=== PATIENT | female | born 1980 | race Caucasian/White ===

== ENCOUNTER 2017-01-03 14:40 | Emergency (ER) | payer MEDICAID ==
[~2017-01-03] VITALS: Ht 167.6 cm; Wt 119.9 kg
[2017-01-03 15:03] VITALS: BP 132/80
[2017-01-03] MEDS ORDERED: KETOROLAC 30 MG/1 ML IM ONE (15:30)
[2017-01-03] MEDS ORDERED: METHOCARBAMOL 750 MG TABLET PO ONE (15:30)
[2017-01-03] MEDS ORDERED: METHOCARBAMOL 750 MG TABLET ONE (15:34)
[2017-01-03] MEDS ORDERED: KETOROLAC 30 MG/1 ML ONE (15:34)
== END 2017-01-03 16:32 | disposition home or self-care (01) ==
LOC: ED 15:52
DX: S39.012A Strain of muscle, fascia and tendon of lower back, initial encounter (principal); Z88.0 Allergy status to penicillin; X58.XXXA Exposure to other specified factors, initial encounter; Y93.89 Activity, other specified; Y92.89 Other specified places as the place of occurrence of the external cause; Y99.8 Other external cause status
CPT/HCPCS: 96372; 99283; J1885